=== PATIENT | female | born 1960 | race Caucasian/White ===

== ENCOUNTER 2017-10-14 13:28 | Inpatient (IN) | payer BC ==
[~2017-10-14] VITALS: Ht 162.6 cm; Wt 78.6 kg
[2017-10-14 14:04] LABS: HEMATOCRIT 40.7 % (36.0-46.0); MCH 28.6 PG (29.0-34.0); MCHC 33.9 G/DL (30.0-36.0); MCV 84.3 FL (83-99); MEAN PLAT.VOLUME 10.7 uM^3 (9.5-12.4); PLATELET COUNT 288 K/uL (156-360); RBC DIS.WIDTH-CV 12.1 % (11.8-14.6); RBC DIS.WIDTH-SD 36.6 % (39-53); RED BLOOD COUNT 4.83 M/uL (3.80-5.20)
[2017-10-14 14:12] LABS: CHLORIDE 108 mEq/L (99-109); POTASSIUM 3.6 mEq/L (3.7-5.4); SODIUM 137 mEq/L (136-147)
[2017-10-14 14:14] LABS: GLUCOSE 141 mg/dL (70-99)
[2017-10-14 14:16] LABS: ANION GAP 8 MEQ/L (2-14); TOTAL BILIRUBIN 0.7 mg/dL (0.0-1.0)
[2017-10-14 14:18] LABS: ALKALINE PHOSPHATASE 121 IU/L (3-129); GFR ESTIMATE (CALCULATED) > 59 mL/min/
[2017-10-14 14:19] LABS: UREA NITROGEN (BUN) 12 mg/dL (9-23)
[2017-10-14 16:10] LABS: LIPASE 14 U/L (1.0-51.0)
[2017-10-14 18:10] LABS: ADD MIUA? YES; BILIRUBIN NEGATIVE; BLOOD MODERATE; COLOR AMBER ((YELLOW)); GLUCOSE (STRIP) NEGATIVE; KETONES 80; LEUKOCYTES NEGATIVE; NITRITE NEGATIVE; PROTEIN (STRIP) 30; SPECIFIC GRAVITY 1.018 (1.000-1.030); UROBILINOGEN 0.2 MG/DL (0.2-1.0)
[2017-10-14 18:30] LABS: AMORPHOUS URATES CRYSTALS 4+; EPITHELIAL CELLS 1+ /HPF; RED BLOOD CELLS 0-5 /HPF (0-5); UCUL ADDED? YES; WHITE BLOOD CELLS RARE /HPF (0-5)
[2017-10-14] MEDS ORDERED: ADVIL200 MG PO (19:33)
[2017-10-14] MEDS ORDERED: SUDOGEST PE10 MG PO (19:34)
[2017-10-15 03:47] VITALS: BP 121/66
[2017-10-15 07:44] VITALS: BP 104/59
[2017-10-15 11:31] VITALS: BP 118/69
[2017-10-15 12:29] LABS: EOSINOPHIL (%) 0.1 % (0-5); HEMATOCRIT 34.6 % (36.0-46.0); IMMATURE GRANULOCYTE (%) 0.3 % (0.0-0.7); INSTRUMENT ABS NEUTROPHIL CT 9.7 K/uL; LYMPHOCYTE COUNT 1.8 K/uL (1.0-2.8); MCH 28.1 PG (29.0-34.0); MCHC 32.4 G/DL (30.0-36.0); MCV 86.7 FL (83-99); MEAN PLAT.VOLUME 10.9 uM^3 (9.5-12.4); MONOCYTE (%) 6.3 % (3-12); MONOCYTE COUNT 0.8 K/uL (0-0.8); NEUTROPHIL (%) 78.7 % (45-76); NEUTROPHIL COUNT 9.7 K/uL (1.8-6.4); PLATELET COUNT 258 K/uL (156-360); RBC DIS.WIDTH-CV 12.7 % (11.8-14.6); RBC DIS.WIDTH-SD 40.7 % (39-53); RED BLOOD COUNT 3.99 M/uL (3.80-5.20); WHITE BLOOD COUNT 12.4 K/uL (4.1-10.2)
[2017-10-15 12:50] LABS: ANION GAP 5 MEQ/L (2-14); CHLORIDE 107 MEQ/L (99-109); GFR ESTIMATE (CALCULATED) > 59 mL/min/; GLUCOSE 138 mg/dL (70-99); POTASSIUM 3.6 MEQ/L (3.7-5.4); SAMPLE HEMOLYSIS CHECK 0; SAMPLE ICTERIC CHECK 0; SAMPLE LIPEMIA CHECK 0; SODIUM 138 MEQ/L (136-147); UREA NITROGEN (BUN) 10 mg/dL (9-23)
[2017-10-15 15:54] VITALS: BP 130/73
[2017-10-15 19:15] VITALS: BP 111/59
[2017-10-15 23:42] VITALS: BP 104/55
[2017-10-16 03:38] VITALS: BP 101/52
[2017-10-16 07:15] VITALS: BP 119/74
[2017-10-16 07:16] LABS: EOSINOPHIL (%) 2.1 % (0-5); EOSINOPHIL COUNT 0.2 K/uL (0-0.3); HEMATOCRIT 33.9 % (36.0-46.0); IMMATURE GRANULOCYTE (%) 0.3 % (0.0-0.7); INSTRUMENT ABS NEUTROPHIL CT 4.5 K/uL; LYMPHOCYTE COUNT 3.1 K/uL (1.0-2.8); MCHC 32.2 G/DL (30.0-36.0); MCV 87.1 FL (83-99); MONOCYTE (%) 8.6 % (3-12); MONOCYTE COUNT 0.7 K/uL (0-0.8); NEUTROPHIL (%) 52.9 % (45-76); NEUTROPHIL COUNT 4.5 K/uL (1.8-6.4); PLATELET COUNT 244 K/uL (156-360); RBC DIS.WIDTH-CV 12.6 % (11.8-14.6); RBC DIS.WIDTH-SD 40.6 % (39-53); RED BLOOD COUNT 3.89 M/uL (3.80-5.20); WHITE BLOOD COUNT 8.6 K/uL (4.1-10.2)
[2017-10-16 07:50] LABS: ANION GAP 5 MEQ/L (2-14); CHLORIDE 110 MEQ/L (99-109); GFR ESTIMATE (CALCULATED) > 59 mL/min/; GLUCOSE 105 mg/dL (70-99); POTASSIUM 3.8 MEQ/L (3.7-5.4); SAMPLE HEMOLYSIS CHECK 0; SAMPLE ICTERIC CHECK 0; SAMPLE LIPEMIA CHECK 0; UREA NITROGEN (BUN) 10 mg/dL (9-23)
[2017-10-16 07:52] LABS: SODIUM 145 MEQ/L (136-147)
[2017-10-16] MEDS ORDERED: TRAMADOL HCL50 MG PO (08:57)
[2017-10-16] MEDS ORDERED: COLACE100 MG PO (08:57)
[2017-10-16] MEDS ORDERED: BACTRIM,SEPT1 TABLET PO (09:00)
== END 2017-10-16 10:12 | disposition home or self-care (01) | DRG 331 ==
LOC: EME 13:28 → SDC 23:42 → EME 23:42 → 2SOUTH 10-15 01:50 → ENRESERV 10-15 02:27 → 2EASTP 10-15 03:00 → 2SOUTH 10-15 12:05 → 2EASTP 10-16 10:12
PROVIDERS: Physician Assistant
DX: K35.80 Unspecified acute appendicitis (principal); K66.0 Peritoneal adhesions (postprocedural) (postinfection); Z68.29 Body mass index [BMI] 29.0-29.9, adult; Z80.3 Family history of malignant neoplasm of breast; Z80.7 Family history of other malignant neoplasms of lymphoid, hematopoietic and related tissues
CPT/HCPCS: 74177; 80048; 80053; 81003; 83605; 83690; 85025; 85027; 87077; 87086; 87186; 88304; 99281; 99285; J0295; J0330; J1170; J1650; J1885; J2250; J2270; J2405; J3010; J7030; J7050